=== PATIENT | female | born 1995 | race Caucasian/White ===

== ENCOUNTER → 2019-03-03 14:17 | Outpatient (CLI) | payer OTHER, SELFPAY ==
--- NOTE | 2019-03-03 14:22 | DI.RAD.S_ITS ---
PROCEDURE: XR THORACIC SPINE 3V INDICATIONS: Persistent neck and back pain x9 months TECHNIQUE: 3 views of the thoracic spine were acquired. COMPARISON: None. FINDINGS: Bones: No fractures or dislocations. No suspicious bony lesions. 12 pairs of ribs are noted, and appear intact where visualized. Soft tissues: No paravertebral stripe thickening. IMPRESSION: Normal for age, source of current neck and back pain symptoms is not seen. Dictated by: Titi Parker M.D. on 03/03/2019 at 15:38 Approved by: Titi Parker M.D. on 03/03/2019 at 15:39
--- NOTE | 2019-03-03 14:22 | DI.RAD.S_ITS ---
PROCEDURE: XR CERVICAL SPINE 2V OR 3V INDICATIONS: Persistent neck and back pain x9 months TECHNIQUE: 3 view(s) of the cervical spine were acquired. COMPARISON: None. FINDINGS: Bones: No fractures or dislocations to the T1 level. The lateral masses of C1 appear intact on the odontoid view. No suspicious bony lesions. Soft tissues: No prevertebral soft tissue swelling. IMPRESSION: A slight degree of degenerative disc hypertension is present at C4-5 and C5-6, and no subluxation or trauma is found. Dictated by: Titi Parker M.D. on 03/03/2019 at 15:38 Approved by: Titi Parker M.D. on 03/03/2019 at 15:38
== END ==
PROVIDERS: PCP Family Medicine; Visit Provider Family Medicine
DX: M54.2 Cervicalgia (principal); M54.6 Pain in thoracic spine; G89.29 Other chronic pain
CPT/HCPCS: 72040; 72072